=== PATIENT | female | born 1935 | race Caucasian/White ===

== ENCOUNTER 2016-09-11 12:20 | Emergency (ER) | payer OTHER, BC ==
[~2016-09-11] VITALS: Ht 157.5 cm; Wt 65.3 kg
[~2016-09-11 12:20] MED LIST: ARICEPT10 MG PO; B-121000 MC2 PO; CIPRO250 MG PO; CIPRO500 MG PO; FLAGYL500 MG PO; GABAPENTIN100 MG PO; MIRTAZAPINE15 MG PO; NAMENDA XR28 MG PO; PROBIOTIC1 EAC1 PO; RISPERDAL0.25 MG PO; ZYPREXA5 MG PO
[2016-09-11] MEDS ORDERED: BENADRYL A12.5 MG/5 PO (14:46)
[2016-09-11 14:57] VITALS: BP 123/94
== END 2016-09-11 15:04 | disposition home or self-care (01) ==
LOC: EME 12:20
DX: T78.40XA Allergy, unspecified, initial encounter (principal); T78.3XXA Angioneurotic edema, initial encounter; F03.90 Unspecified dementia, unspecified severity, without behavioral disturbance, psychotic disturbance, mood disturbance, and anxiety
CPT/HCPCS: 99281; 99284; J1100; J1200